=== PATIENT | female | born 1970 | race Caucasian/White ===

== ENCOUNTER → 2019-12-18 10:52 | Outpatient (BNVA) | payer BC, SELFPAY | PROVIDERS: Family Provider Registered Nurse; PCP Registered Nurse; Visit Provider Registered Nurse | DX: E53.8 Deficiency of other specified B group vitamins (principal) | CPT/HCPCS: 82607 ==

== ENCOUNTER → 2020-03-09 10:03 | Outpatient (BNVA) | payer BC, SELFPAY | PROVIDERS: Family Provider Registered Nurse; PCP Registered Nurse; Visit Provider Registered Nurse | DX: Z79.1 Long term (current) use of non-steroidal anti-inflammatories (NSAID) (principal); E53.8 Deficiency of other specified B group vitamins; M25.541 Pain in joints of right hand; M25.542 Pain in joints of left hand; M25.521 Pain in right elbow; M25.522 Pain in left elbow; Z87.891 Personal history of nicotine dependence | CPT/HCPCS: 80053; 82607; 85025; 85651; 86140; 86431 ==

== ENCOUNTER → 2020-05-05 13:19 | Outpatient (BNVA) | payer BC, SELFPAY | PROVIDERS: Family Provider Registered Nurse; PCP Registered Nurse; Visit Provider Internal Medicine Rheumatology | DX: E53.9 Vitamin B deficiency, unspecified (principal); M25.521 Pain in right elbow; M25.522 Pain in left elbow; M25.541 Pain in joints of right hand; M25.542 Pain in joints of left hand; Z87.891 Personal history of nicotine dependence; Z79.1 Long term (current) use of non-steroidal anti-inflammatories (NSAID) | CPT/HCPCS: 99203 ==